=== PATIENT | female | born 1990 | race Caucasian/White ===

== ENCOUNTER 2023-02-08 02:39 | Emergency (ER) | payer BC ==
[2023-02-08] MEDS ORDERED: Amoxicillin/Clavulanate K 875-125 MG Tab PO ONE (04:03)
== END 2023-02-08 04:30 | disposition home or self-care (01) ==
LOC: JD.ED 02:39 → MERGE 02:39 → JD.ED 04:30
DX: J01.10 Acute frontal sinusitis, unspecified (principal); J32.0 Chronic maxillary sinusitis; H66.92 Otitis media, unspecified, left ear; Z72.0 Tobacco use
CPT/HCPCS: 99283; A9270

== ENCOUNTER 2024-01-26 12:51 | Day surgery (SDC) | payer BC ==
[~2024-01-26 12:51] MED LIST: Dexamethasone 4 MG/ML 5 ML MDV ONE; Midazolam 1 MG/ML 2 ML SDV ONE; Ondansetron 4 MG/2 ML SDV ONE; Propofol 200 MG/20 ML SDV ONE; Rocuronium 50 MG/5 ML Vial ONE; Succinylcholine 200 MG/10 ML MDV ONE; fentaNYL 250 MCG/5 ML SDV ONE
[2024-01-26] MEDS: Lactated Ringers 1,000 ML IV SCH (13:05)
[2024-01-26] MEDS ORDERED: cefOXitin 2 GM in Sodium Chloride 0.9% 50 ML IV ONE (13:11)
[2024-01-26] MEDS ORDERED: Sugammadex Sodium 200 MG/2 ML VIAL IV ONE (13:12)
[2024-01-26] MEDS ORDERED: Ondansetron 4 MG/2 ML SDV IVPUSH PRN (13:21)
[2024-01-26] MEDS ORDERED: HYDROmorphone 0.5 MG/0.5 ML Syringe IVPUSH PRN (13:21)
[2024-01-26] MEDS ORDERED: cefOXitin 2 GM Vial ONE (13:27)
[2024-01-26] MEDS: Ketorolac 30 MG/ML SDV IVPUSH SCH (14:54)
[2024-01-26] MEDS: Bupivacaine 0.5% 30 ML SDV ONE (14:58)
[2024-01-26] MEDS: EPINEPHrine 1 MG/ML SDV ONE (14:59)
[2024-01-26] MEDS: fentaNYL 100 MCG/2 ML SDV IVPUSH PRN (15:06)
[2024-01-26] MEDS: oxyCODONE 5 MG Tab PO PRN (16:41)
== END 2024-01-26 16:55 | disposition home or self-care (01) ==
LOC: JD.SDS 12:51
PROVIDERS: ATTEND Surgery
DX: K35.33 Acute appendicitis with perforation, localized peritonitis, and gangrene, with abscess (principal)
CPT/HCPCS: 44970; A9270; J0171; J0330; J0665; J0694; J1100; J1885; J2250; J2405; J2704; J3010; J3490; J7120; 00840; 99140